=== PATIENT | male | born 1990 | race Two or more races ===

== ENCOUNTER 2017-04-13 11:09 | Emergency (ER) | payer MEDICAID ==
[~2017-04-13] VITALS: Ht 177.8 cm; Wt 79.4 kg
[2017-04-13] MEDS ORDERED: RISPERDAL0.25 MG ORAL (11:13)
[2017-04-13] MEDS ORDERED: BUPROPION XL300 MG ORAL (11:13)
[2017-04-13] MEDS ORDERED: Dicyclomine HCl 10mg/5ml oral soln ORAL ONE (12:00)
[2017-04-13] MEDS ORDERED: Lidocaine 2% Visc 15ml soln ORAL ONE (12:00)
[2017-04-13] MEDS ORDERED: ZOFRAN4 MG ORAL (12:19)
[2017-04-13] MEDS ORDERED: BENTYL10 MG ORAL (12:19)
[2017-04-13 12:37] VITALS: BP 127/75
--- NOTE | 2017-04-14 07:08 | Emergency Room Report ---
History of Present Illness General Chief Complaint: Abdominal Pain Source: Patient, EMS Present Illness HPI Patient is a 26-year-old male brought in by EMS after increased epigastric pain and nausea. The patient had not been vomiting. He denied any black or bloody stools. He had not been having any fever. The patient stated pain was a burning sensation as well as nausea. Patient had not had prior surgery. He denies any change in pain or exacerbating factors. He denied diarrhea. He denied feeling dizzy lightheaded. Allergies: Coded Allergies: No Known Allergies (Unverified , 04/13/17) Patient History Reviewed Nursing Documentation: PMH: Agreed, PSxH: Agreed Nursing Documentation-PMH Past Medical History: No History, Except For Hx Asthma: Yes History Of Psychiatric Problem: Yes - BIPOLAR Review of Systems All Other Systems: negative except mentioned in HPI Physical Exam Vital Signs Date Time Temp Pulse Resp B/P Pulse Ox O2 Delivery O2 Flow Rate FiO2 04/13/17 11:08 98.6 90 15 146/73 98 Room Air Sp02 EP Interpretation: reviewed, normal General Appearance: normal inspection, well appearing, no apparent distress, alert, GCS 15, non-toxic Head: atraumatic ENT: normal ENT inspection, hearing grossly normal, normal voice Neck: normal inspection, full range of motion, supple, no bony tend Respiratory: normal inspection, lungs clear, normal breath sounds, no respiratory distress, no retraction, no wheezing Cardiovascular #1: regular rate, rhythm, no edema Gastrointestinal: normal inspection, normal bowel sounds, non tender, soft, no guarding, no hernia Genitourinary: no CVA tenderness Musculoskeletal: normal inspection, back normal, normal range of motion Neurologic: normal inspection, alert, oriented x3, responsive, hedge trimmer III-XII nml as tested, speech normal Psychiatric: normal inspection, judgement/insight normal, mood/affect normal Skin: normal inspection, normal color, no rash Medical Decision Making Diagnostic Impression: Primary Impression: Abdominal pain ER Course Patient presented for abdominal pain. Differential diagnoses included ischemic bowel, appendicitis, perforated viscus, abdominal aortic aneurysm, inferior myocardial infarction, viral gastroenteritis Patient's benign exam and does not appear to require any further imaging or laboratory testing at this time. Patient was given GI cocktail with improvement. Patient given prescription for Zofran and Bentyl. The patient is advised followup with his primary care physician in the next one to 2 days. Last Vital Signs Date Time Temp Pulse Resp B/P Pulse Ox O2 Delivery O2 Flow Rate FiO2 04/13/17 12:37 79 18 127/75 100 Room Air 04/13/17 11:08 98.6 Status: improved Disposition: HOME, SELF-CARE Condition: Stable Scripts Ondansetron (Zofran) 4 Mg Tablet 4 MG ORAL Q6H Y for Nausea & Vomiting, #30 TAB 0 Refills Prov: Alvaro Vizcaino 04/13/17 Dicyclomine Hcl* (BENTYL*) 10 Mg Capsule 10 MG ORAL FOUR TIMES A DAY, #30 CAP Prov: Alvaro Vizcaino 04/13/17 Referrals: [facility] (PCP) Patient Instructions: Abdominal Pain, Adult Alvaro Vizcaino Apr 14, 2017 07:08
== END 2017-04-13 12:37 | disposition home or self-care (01) ==
LOC: EDBD 11:09 → EMR 11:35
DX: R10.13 Epigastric pain (principal); J45.909 Unspecified asthma, uncomplicated; F31.9 Bipolar disorder, unspecified
CPT/HCPCS: 99284

== ENCOUNTER 2017-08-15 19:06 | Emergency (ER) | payer MEDICAID ==
[~2017-08-15] VITALS: Ht 170.2 cm; Wt 99.8 kg
[~2017-08-15 19:06] MED LIST: BENTYL10 MG ORAL; BUPROPION XL300 MG ORAL; RISPERDAL0.25 MG ORAL; ZOFRAN4 MG ORAL
[2017-08-15 19:20] VITALS: BP 122/82
--- NOTE | 2017-08-15 19:44 | Emergency Room Report ---
History of Present Illness General Chief Complaint: Abdominal Pain Source: Patient Present Illness HPI Patient's 26-year-old male who presented after having generalized abdominal pain. Patient gradual onset of symptoms. He reports having intermittent episodes of diarrhea over the past 2 months. The patient reports having intermittent symptoms he denies having localized pain. The patient reported having increased abdominal cramping he denies any recent travel the patient prior similar symptoms. Patient prior history of psychiatric disease. He reports being smoker. Denies alcohol use. Allergies: Coded Allergies: No Known Allergies (Unverified , 04/13/17) Patient History Past Medical History: see triage record Reviewed Nursing Documentation: PMH: Agreed, PSxH: Agreed Nursing Documentation-PMH Past Medical History: No History, Except For Hx Asthma: Yes Review of Systems All Other Systems: negative except mentioned in HPI Physical Exam Vital Signs Date Time Temp Pulse Resp B/P (MAP) Pulse Ox O2 Delivery O2 Flow Rate FiO2 08/15/17 19:08 98.2 89 20 122/82 97 Room Air General Appearance: well appearing, no apparent distress, alert, GCS 15, non- toxic Head: normocephalic, atraumatic ENT: hearing grossly normal, normal voice Neck: full range of motion, supple Respiratory: no respiratory distress, speaking full sentences Cardiovascular #1: normal inspection, normal peripheral pulses, regular rate, rhythm Gastrointestinal: normal inspection Musculoskeletal: normal inspection, back normal, normal range of motion, no calf tenderness Neurologic: normal inspection, alert, oriented x3, responsive, adjunct trainer III-XII nml as tested, normal gait Psychiatric: mood/affect normal Skin: no rash Medical Decision Making Diagnostic Impression: Primary Impression: Abdominal gas pain ER Course Patient presented for abdominal pain. Differential diagnoses included ischemic bowel, appendicitis, perforated viscus, abdominal aortic aneurysm, inferior myocardial infarction, viral gastroenteritis. Patient's benign exam and does not appear to require any laboratory testing at this time. A KUB one view interpreted by me showed no evident bowel obstruction.The patient was given a GI cocktail. The patient for pain. Patient had improvement in pain. He is advised to followup with his primary care physician for reevaluation.The patient is advised to follow up with primary care doctor in 1-2 days. Patient is advised to return if any worsening condition or if any changes in status that are concerning. This report is dictated with [employer] welder assistant software which may occasionally lead to discrepancies related to use of this software. Other X-Ray Diagnostic Results Other X-Ray Diagnostic Results : # of Views/Limited Vs Complete: 1 View Indication: Pain EP Interpretation: Yes Interpretation: nonspecific bowel gas, no sbo Impression: No acute disease Electronically Signed by: Electronically signed by Dr. Alvaro Vizcaino M.D. Last Vital Signs Date Time Temp Pulse Resp B/P (MAP) Pulse Ox O2 Delivery O2 Flow Rate FiO2 08/15/17 19:20 98.2 20 122/82 97 Room Air 08/15/17 19:08 89 Status: improved Disposition: HOME, SELF-CARE Condition: Stable Scripts Loperamide HCl (Loperamide) 2 Mg Capsule 2 MG ORAL Q4H, #20 CAP 0 Refills Prov: Alvaro Vizcaino 08/15/17 Dicyclomine Hcl* (BENTYL*) 10 Mg Capsule 10 MG ORAL FOUR TIMES A DAY, #20 CAP Prov: Alvaro Vizcaino 08/15/17 Referrals: [facility] (PCP) Alvaro Vizcaino Aug 15, 2017 19:44
[2017-08-15] MEDS ORDERED: Lidocaine 2% Visc 15ml soln ORAL ONE (19:45)
[2017-08-15] MEDS ORDERED: Dicyclomine HCl 10mg/5ml oral soln ORAL ONE (19:45)
[2017-08-15] MEDS ORDERED: IMODIUM2 MG ORAL (20:02)
[2017-08-15] MEDS ORDERED: BENTYL10 MG ORAL (20:02)
[2017-08-15 20:10] VITALS: BP 122/82
--- NOTE | 2017-08-16 10:08 | Diagnostic Imaging Report ---
Indication: Abdominal pain Technique: Supine view of the abdomen Comparison: none Findings: Bowel gas pattern is unremarkable. No unusual masses or calcifications. Impression: No acute process
== END 2017-08-15 20:10 | disposition home or self-care (01) ==
LOC: EMR 19:31
DX: R10.84 Generalized abdominal pain (principal); R14.1 Gas pain; J45.909 Unspecified asthma, uncomplicated
CPT/HCPCS: 74000; 99284